=== PATIENT | female | born 1960 | race African-American/Black ===

== ENCOUNTER 2020-09-26 21:38 | Emergency (ER) | payer SELFPAY ==
[~2020-09-26] VITALS: Ht 165.1 cm; Wt 82.0 kg
--- NOTE | 2020-09-26 21:54 | NUR ---
pt bib remsa. c/o fall and twisted right ankle. noted deformity to ankle and pain. MD to bedside to assess and ordered xray.
--- NOTE | 2020-09-26 21:58 | NUR ---
dental equipment technician to bedside to complete ankle xray
[2020-09-26] MEDS ORDERED: OXYcodone/APAP 5/325MG TABLET ONE (22:45)
[2020-09-26] MEDS ORDERED: LIDOCAINE-MPF 1%, 5ML ONE (22:45)
--- NOTE | 2020-09-26 22:57 | NUR ---
PT awake and alert. on phone with family members updating them. meds given for pain, and set up done for laceration on left thumb. a&ox4.
[2020-09-26] MEDS ORDERED: OXYcodone/APAP 5/325MG TABLET PO ONE (23:00)
[2020-09-26] MEDS ORDERED: LIDOCAINE-MPF 1%, 5ML INFIL ONE (23:00)
--- NOTE | 2020-09-26 23:31 | NUR ---
MD to bedside to suture lac to left thumb. also EMT to bedside to splint the right lower leg. pt anxious and tolerating well.
[2020-09-26] MEDS ORDERED: HYDROmorphone 1 MG/ML, 1ML INJ ONE (23:35)
[2020-09-26] MEDS ORDERED: PLEASE ENTER ALLERGIES MC SCH (23:45)
[2020-09-27] MEDS ORDERED: HYDROmorphone 1 MG/ML, 1ML INJ IM ONE
[2020-09-27 00:02] VITALS: BP 114/70
== END 2020-09-27 01:09 | disposition home or self-care (01) ==
LOC: ED 09-27 01:05
DX: S82.441A Displaced spiral fracture of shaft of right fibula, initial encounter for closed fracture (principal); G89.11 Acute pain due to trauma; M25.571 Pain in right ankle and joints of right foot; W01.0XXA Fall on same level from slipping, tripping and stumbling without subsequent striking against object, initial encounter; F17.210 Nicotine dependence, cigarettes, uncomplicated; Y93.89 Activity, other specified; Y92.89 Other specified places as the place of occurrence of the external cause; Y99.8 Other external cause status
CPT/HCPCS: 27840; 73610; 96372; 99284; 99406; J1170

== ENCOUNTER 2020-10-03 19:28 | Emergency (ER) | payer SELFPAY ==
--- NOTE | 2020-10-03 19:40 | NUR ---
INITIAL PT CONTACT. PT PRESENTS TO ED C/O INCREASED PAIN TO THE RIGHT LOWER LEG AND ANKLE. PT SEEN HERE 1 WEEK AGO FOR ANKLE FX, SPLINT PLACED. PT STATES "THIS SPLINT HAS MOVED AND I HAVE SO MUCH MORE PAIN. I WASN'T ABLE TO FILL MY RX, SO I HAVENT BEEN TAKING ANYTHING FOR PAIN." PT SITTING UPRIGHT ON WALKER SHEA. VSS. INJURED LEG ELEVATED. PT DENIES ANY ADDITONAL NEEDS AT THIS TIME. CALL LIGHT IN REACH. ERP AT BEDSIDE.
[2020-10-03] MEDS ORDERED: HYDROcodone/APAP 5/325 TABLET ONE (19:55)
[2020-10-03] MEDS ORDERED: HYDROcodone/APAP 5/325 TABLET PO ONE (20:00)
--- NOTE | 2020-10-03 20:01 | NUR ---
EXSISTING SPLINT REMOVED PER ERP ORDER, PT REPORTS IMMEDIATE RELIEF. ICE PACK APPLIED, AWAITING XRAY. PT DENIES ANY ADDITIONAL NEEDS AT THIS TIME. CALL LIGHT IN REACH.
--- NOTE | 2020-10-03 21:04 | NUR ---
ED LISA MUNIZ AND CHAD AT BEDSIDE FOR SPLINT PLACEMENT. PT TOLREATING WELL.
[2020-10-03 21:17] VITALS: BP 127/65
--- NOTE | 2020-10-03 21:36 | NUR ---
Patient given discharge instructions and they have confirmed that they understand the instructions. Patient to d/c via wheelchair then with crutch walking to [facility].
== END 2020-10-03 21:38 | disposition home or self-care (01) ==
LOC: ED 19:58
DX: S82.891A Other fracture of right lower leg, initial encounter for closed fracture (principal); S82.441A Displaced spiral fracture of shaft of right fibula, initial encounter for closed fracture; W18.30XA Fall on same level, unspecified, initial encounter; Y93.89 Activity, other specified; Y92.009 Unspecified place in unspecified non-institutional (private) residence as the place of occurrence of the external cause; Y99.8 Other external cause status
CPT/HCPCS: 29515; 99284

== ENCOUNTER 2020-10-24 08:51 | Day surgery (SDC) | payer SELFPAY ==
[~2020-10-24] VITALS: Ht 165.1 cm; Wt 83.6 kg
[~2020-10-24 08:51] MED LIST: FENTANYL PF 100 MCG/2ML ONE; MIDAZOLAM 1 MG/ML, 2ML ONE
[2020-10-24 09:19] VITALS: BP 145/64
[2020-10-24] MEDS ORDERED: CHLORHEXIDINE 15 ML UDC MM ONE (09:30)
[2020-10-24] MEDS ORDERED: PLEASE ENTER HEIGHT AND WEIGHT MC SCH (09:30)
[2020-10-24] MEDS ORDERED: LACTATED RINGERS 1,000 ML IV SCH (09:30)
[2020-10-24] MEDS ORDERED: FENTANYL PF 100 MCG/2ML ONE ×2 (10:36→12:01)
[2020-10-24] MEDS ORDERED: KETOROLAC 30 MG/1 ML IVPush PRN (11:00)
[2020-10-24] MEDS ORDERED: ONDANSETRON 2MG/ML, 2ML IVPush PRN (11:00)
[2020-10-24] MEDS ORDERED: HYDROmorphone 1 MG/ML, 1ML INJ IVPush PRN (11:00)
[2020-10-24] MEDS ORDERED: PROMETHAZINE 25 MG/ML, 1ML IVPush PRN (11:00)
[2020-10-24] MEDS ORDERED: HYDROcodone/APAP 7.5-325MG/15ML UDC PO PRN (11:00)
[2020-10-24] MEDS ORDERED: MEPERIDINE/PF 25MG/0.5ML IVPush PRN (11:00)
[2020-10-24] MEDS ORDERED: OXYcodone 5 MG/5 ML ORAL.SOL UDC PO PRN (11:00)
[2020-10-24] MEDS ORDERED: DEXAMETHASONE 4 MG/ML, 1ML ONE (11:15)
[2020-10-24] MEDS ORDERED: CEFAZOLIN 1,000 MG ONE (11:15)
[2020-10-24] MEDS ORDERED: PROPOFOL 10 MG/ML, 20ML ONE (11:15)
[2020-10-24] MEDS ORDERED: ONDANSETRON 2MG/ML, 2ML ONE (11:15)
[2020-10-24] MEDS ORDERED: OXYcodone 5 MG/5 ML ORAL.SOL UDC ONE ×2 (12:01→12:11)
[2020-10-24] MEDS: FENTANYL PF 100 MCG/2ML IV PRN ×2 (12:05→12:15)
[2020-10-24] MEDS ORDERED: HYDROmorphone 1 MG/ML, 1ML INJ ONE (12:34)
[2020-10-24] MEDS ORDERED: HYDROcodone/APAP 7.5-325MG/15ML UDC ONE (15:25)
== END 2020-10-24 17:05 | disposition home or self-care (01) ==
LOC: OUT 08:51
PROVIDERS: ATTEND Orthopaedic Surgery
DX: S82.841A Displaced bimalleolar fracture of right lower leg, initial encounter for closed fracture (principal); X58.XXXA Exposure to other specified factors, initial encounter; Y93.89 Activity, other specified; Y92.89 Other specified places as the place of occurrence of the external cause; Y99.8 Other external cause status; Z20.822 Contact with and (suspected) exposure to COVID-19; Z72.89 Other problems related to lifestyle; Z87.891 Personal history of nicotine dependence
CPT/HCPCS: 27814; 64447; 64450; 73600; 87635; 93005; C1713; J0690; J1100; J1170; J2250; J2405; J2704; J3010; J7120; 76000